=== PATIENT | female | born 1990 | race Caucasian/White ===

== ENCOUNTER 2016-03-19 18:06 | Emergency (ER) | payer OTHER ==
[~2016-03-19 18:06] MED LIST: ACET50TA PO; COLA100C PO; IBUP80TA PO; IRON65TA PO; NUPE1OIN2 TOP; VITAPRTA PO
[2016-03-19] MEDS ORDERED: ONDANSETRON 4 MG ORAL DISINTEGRATING TAB (S0181) As Ordered ONE (19:56)
--- NOTE | 2016-03-19 20:03 | EDDOCDS ---
Physician Documentation [facility] Name: Pauline Mccormack Age: 25 yrs Sex: Female : 1990 Arrival Date: 03/19/2016 Time: 18:06 Bed Triage 2 Private MD: LISA aWrd Disposition: 03/19/16 19:51 Discharged to Home/Self Care. Impression: Nausea and vomiting, Diarrhea, unspecified. - Condition is Stable. - Discharge Instructions: Viral Gastroenteritis. - Prescriptions for ZOFRAN ODT 4 mg - dissolve 1 tablet by ORAL route 4 times per day As needed do not chew, do not swallow whole; 10 tablet. - Medication Reconciliation form. - Follow up: LISA Ward; When: Call to arrange an appointment; Reason: Wound/Symptom Recheck, Recheck today's complaints, Continuance of care. - Problem is new. - Symptoms are unchanged. Historical: - Allergies: Dilaudid (Rash); Morphine (Rash); - Home Meds: 1. Mirena 20 mcg/24 hr (5 years) intrauterine IUD 2. Mobic 15 mg oral tab 1 tab once daily 3. Tylenol Oral as needed 4. Align oral oral daily - PMHx: Osteitis Pubis; - PSHx: Cholecystectomy; Appendectomy; - Social history: Smoking status: Patient uses tobacco products, light tobacco smoker. No barriers to communication noted, The patient speaks fluent Dominican. - Family history: Not pertinent. - : The pt / caregiver states he / she is not on anticoagulants. Home medication list is obtained from the patient. - Exposure Risk Screening:: None identified. 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 7 in. (170.18 cm) (R); 20:01 BP 118 / 72; Pulse 99; Resp 16; Temp 99; Pulse Ox 97% ; Pain 5/10; ko2 18:08 Body Mass Index 35.55 (102.97 kg, 170.18 cm) dd6 MDM: 19:50 Ondansetron ODT Oral Disintegrating Tablet 4 mg PO once ordered. cc10 Administered Medications: 20:02 Drug: Ondansetron ODT 4 mg [ondansetron 4 mg disintegrating tablet (1 tabs)] Route: PO; ko2 Signatures: Candice Mandel, RN RN mcp Cherelle Jamison RN RN lf1 José Miguel Carvajal, PA-C PA-C cc10 Zora Pond RN RN ko2 MTDD
--- NOTE | 2016-03-19 20:03 | EDDOCDS ---
Nurse's Notes [facility] Name: Pauline Mccormack Age: 25 yrs Sex: Female : 1990 Arrival Date: 03/19/2016 Time: 18:06 Bed Triage 2 Private MD: LISA Ward Diagnosis: Nausea and vomiting;Diarrhea, unspecified Presentation: 03/19 18:34 Presenting complaint: Patient states: Severe stomach pain that comes and goes, diarrhea mcp since yesterday, nauseous. Risk factors: the patient reports no vaginal bleeding. Adult Sepsis Screening: The patient does not have new or worsening altered mentation. Patient's respiratory rate is less than 22. Systolic blood pressure is greater than 100. Patient has a qSOFA score of 0- Negative Sepsis Screen. Suicide/Homicide risk assessment- the patient denies having any suicidal and/or homicidal ideations and does not present with any other emotional, behavioral or mental health complaints. Status: The patient is a dependent. Transition of care: patient was not received from another setting of care. 18:34 Acuity: WALLACE Level 3 [facility] 18:34 Method Of Arrival: Walkin/Carried/Asstd [facility] Triage Assessment: 18:37 General: Appears uncomfortable, Behavior is cooperative. Pain: Location: abdomen Pain mcp currently is 7 out of 10 on a pain scale. HIV screening NA for this visit Offered previously. Neurological: No deficits noted. Respiratory: Airway is patent Respiratory effort is even, unlabored. GI: Reports diarrhea, lower abdominal pain. Derm: Skin is pink, warm & dry. 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 Mirena 20 mcg/24 hr (5 years) intrauterine IUD 2. Mobic 15 mg oral tab 1 tab once daily 3. Tylenol Oral as needed 4. Align oral oral daily - PMHx: Osteitis Pubis; - PSHx: Cholecystectomy; Appendectomy; - Social history: Smoking status: Patient uses tobacco products, light tobacco smoker. No barriers to communication noted, The patient speaks fluent Faroese. - Family history: Not pertinent. - : The pt / caregiver states he / she is not on anticoagulants. Home medication list is obtained from the patient. - Exposure Risk Screening:: None identified. Screenin:35 Screening information is obtained from the patient. Fall risk: No risks identified. lf1 Assistance ADL's: requires no assistance with activities of daily living. Nutritional screening: Is suppose to be doing a low fat diet after cholecystectomy but states she does not follow it. Advance Directives: Currently, there is no health care proxy. 20:02 Abuse/DV Screen: The patient / caregiver reports he/she is: not in a situation that ko2 causes fear, pain or injury. home support is adequate. Assessment: 19:35 Adult Sepsis Screening: The patient does not have new or worsening altered mentation. lf1 Patient's respiratory rate is less than 22. Systolic blood pressure is greater than 100. Patient has a qSOFA score of 0- Negative Sepsis Screen. General: Appears in no apparent distress, Behavior is cooperative. Pain: Location: epigastric area, umbilical area and suprapubic area Pain currently is 5 out of 10 on a pain scale. At worst was 8 out of 10 on a pain scale. Pain radiates to abdomen Quality of pain is described as sharp. Neurological: Level of Consciousness is awake, alert, Oriented to person, place, time. EENT: No deficits noted. Cardiovascular: Chest pain is denied. Respiratory: Respiratory effort is even, unlabored, Breath sounds are clear bilaterally. GI: Abdomen is obese, Bowel sounds present X 4 quads. Abd is soft and non tender. GI: Reports cramping, diarrhea. : Denies burning with urination. Derm: Skin is normal. Injury Description: No known injury. Vital Signs: 18:08 BP 122 / 65; Pulse 105; Resp 18 S; Temp 99.0(O); Pulse Ox 97% on R/A; Weight 102.97 kg dd6 (R); Height 5 ft. 7 in. (170.18 cm) (R); 20:01 BP 118 / 72; Pulse 99; Resp 16; Temp 99; Pulse Ox 97% ; Pain 5/10; ko2 18:08 Body Mass Index 35.55 (102.97 kg, 170.18 cm) dd6 Vitals: 18:08 Log In Time: March 19, 2016 at 18:06. dd6 ED Course: 18:07 Patient visited by Eduin Sigala, FALLON. dd6 18:07 Patient moved to Waiting dd6 18:08 Sylvia [facility] is Private Physician. dd6 18:09 Patient moved to Pre RCE dd6 18:35 Triage Initiated [facility] 18:38 Patient visited by Candice Mandel RN. [facility] 19:32 Patient moved to Triage 2 mdr 19:39 Patient visited by Cherelle Jamison,NIELS. lf1 19:44 José Miguel Carvajal PA-C [facility]. cc10 19:44 Hola Johnson MD is Attending Physician. cc10 19:44 Patient visited by José Miguel Carvajal PA-C. cc10 19:44 Patient visited by José Miguel Carvajal PA-C. cc10 19:51 [place] [facility] is Referral Physician. cc10 20:02 The patient / caregiver is instructed regarding the plan of care and ED course. ko2 20:02 No IV's were initiated during this patient's visit. No procedures done that require ko2 assistance. Administered Medications: 20:02 Drug: Ondansetron ODT 4 mg [ondansetron 4 mg disintegrating tablet (1 tabs)] Route: PO; ko2 Order Results: There are currently no results for this order. Outcome: 19:51 Discharge ordered by Provider. cc10 20:02 Discharge Assessment: Patient awake, alert and oriented x 3. No cognitive and/or ko2 functional deficits noted. Patient verbalized understanding of disposition instructions. patient administered narcotics - no. The following High Risk Discharge criteria are identified: None. Discharged to home ambulatory, with significant other. Condition: stable. Discharge instructions given to patient, Instructed on discharge instructions, follow up and referral plans. medication usage, Demonstrated understanding of instructions, medications, Pt was receptive of discharge instructions/ teaching. Prescriptions given X 1. No special radiology studies were completed. Property sent home with patient. 20:03 Patient left the ED. ko2 Signatures: Candice Mandel RN RN [facility] Cherelle Jamison,RN RN lf1 Eduin Sigala, COLLECTIONS TECHNICIAN COLLECTIONS TECHNICIAN dd6 José Miguel Carvajal PA-C PA-C cc10 Zora Pond RN RN ko2 Jose Antonio Asif, COLLECTIONS TECHNICIAN COLLECTIONS TECHNICIAN mdr MTDD
--- NOTE | 2016-03-21 21:03 | EDDOCDS ---
Physician Documentation [facility] Name: Pauline Mccormack Age: 25 yrs Sex: Female : 1990 Arrival Date: 03/19/2016 Time: 18:06 Bed Triage 2 Private MD: LISA Ward Disposition: 03/19/16 19:51 Discharged to Home/Self Care. Impression: Nausea and vomiting, Diarrhea, unspecified. - Condition is Stable. - Discharge Instructions: Viral Gastroenteritis. - Prescriptions for ZOFRAN ODT 4 mg - dissolve 1 tablet by ORAL route 4 times per day As needed do not chew, do not swallow whole; 10 tablet. - Medication Reconciliation form. - Follow up: LISA Ward; When: Call to arrange an appointment; Reason: Wound/Symptom Recheck, Recheck today's complaints, Continuance of care. - Problem is new. - Symptoms are unchanged. Historical: - Allergies: Dilaudid (Rash); Morphine (Rash); - Home Meds: 1. Mirena 20 mcg/24 hr (5 years) intrauterine IUD 2. Mobic 15 mg oral tab 1 tab once daily 3. Tylenol Oral as needed 4. Align oral oral daily - PMHx: Osteitis Pubis; - PSHx: Cholecystectomy; Appendectomy; - Social history: Smoking status: Patient uses tobacco products, light tobacco smoker. No barriers to communication noted, The patient speaks fluent Haitian. - Family history: Not pertinent. - : The pt / caregiver states he / she is not on anticoagulants. Home medication list is obtained from the patient. - Exposure Risk Screening:: None identified. 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 7 in. (170.18 cm) (R); 20:01 BP 118 / 72; Pulse 99; Resp 16; Temp 99; Pulse Ox 97% ; Pain 5/10; ko2 18:08 Body Mass Index 35.55 (102.97 kg, 170.18 cm) dd6 MDM: 19:50 Ondansetron ODT Oral Disintegrating Tablet 4 mg PO once ordered. cc10 03/20 02:57 T-Sheet-- Draft Copy was scanned into [employer] and attached to record. hs2 Administered Medications: 03/19 20:02 Drug: Ondansetron ODT 4 mg [ondansetron 4 mg disintegrating tablet (1 tabs)] Route: PO; ko2 Signatures: Candice Mandel RN RN mcp Cherelle Jamison RN RN lf1 José Miguel Carvajal PA-C PAeFrn cc10 Zora Pond RN RN ko2 Gina Knapp, Reg Reg hs2 The chart was reviewed and I authenticate all verbal orders and agree with the evaluation and treatment provided.Attachments: 03/20 02:57 T-Sheet-- Draft Copy hs2 Chart Complete MTDD
--- NOTE | 2016-03-21 21:03 | EDDOCDS ---
Physician Documentation [facility] Name: Pauline Mccormack Age: 25 yrs Sex: Female : 1990 Arrival Date: 03/19/2016 Time: 18:06 Bed Triage 2 Private MD: LISA Ward Disposition: 03/19/16 19:51 Discharged to Home/Self Care. Impression: Nausea and vomiting, Diarrhea, unspecified. - Condition is Stable. - Discharge Instructions: Viral Gastroenteritis. - Prescriptions for ZOFRAN ODT 4 mg - dissolve 1 tablet by ORAL route 4 times per day As needed do not chew, do not swallow whole; 10 tablet. - Medication Reconciliation form. - Follow up: LISA Ward; When: Call to arrange an appointment; Reason: Wound/Symptom Recheck, Recheck today's complaints, Continuance of care. - Problem is new. - Symptoms are unchanged. Historical: - Allergies: Dilaudid (Rash); Morphine (Rash); - Home Meds: 1. Mirena 20 mcg/24 hr (5 years) intrauterine IUD 2. Mobic 15 mg oral tab 1 tab once daily 3. Tylenol Oral as needed 4. Align oral oral daily - PMHx: Osteitis Pubis; - PSHx: Cholecystectomy; Appendectomy; - Social history: Smoking status: Patient uses tobacco products, light tobacco smoker. No barriers to communication noted, The patient speaks fluent Puerto Rican. - Family history: Not pertinent. - : The pt / caregiver states he / she is not on anticoagulants. Home medication list is obtained from the patient. - Exposure Risk Screening:: None identified. 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 7 in. (170.18 cm) (R); 20:01 BP 118 / 72; Pulse 99; Resp 16; Temp 99; Pulse Ox 97% ; Pain 5/10; ko2 18:08 Body Mass Index 35.55 (102.97 kg, 170.18 cm) dd6 MDM: 19:50 Ondansetron ODT Oral Disintegrating Tablet 4 mg PO once ordered. cc10 03/20 02:57 T-Sheet-- Draft Copy was scanned into [employer] and attached to record. hs2 Administered Medications: 03/19 20:02 Drug: Ondansetron ODT 4 mg [ondansetron 4 mg disintegrating tablet (1 tabs)] Route: PO; ko2 Signatures: Candice Mandel RN RN mcp Cherelle Jamison RN RN lf1 José Miguel Carvajal PA-C PAFern cc10 Zora Pond RN RN ko2 Gina Knapp, Reg Reg hs2 The chart was reviewed and I authenticate all verbal orders and agree with the evaluation and treatment provided.Attachments: 03/20 02:57 T-Sheet-- Draft Copy hs2 Chart Complete MTDD
--- NOTE | 2016-03-21 21:03 | EDDOCDS ---
Nurse's Notes [facility] Name: Pauline Mccormack Age: 25 yrs Sex: Female : 1990 Arrival Date: 03/19/2016 Time: 18:06 Bed Triage 2 Private MD: ILSA Ward Diagnosis: Nausea and vomiting;Diarrhea, unspecified Presentation: 03/19 18:34 Presenting complaint: Patient states: Severe stomach pain that comes and goes, diarrhea mcp since yesterday, nauseous. Risk factors: the patient reports no vaginal bleeding. Adult Sepsis Screening: The patient does not have new or worsening altered mentation. Patient's respiratory rate is less than 22. Systolic blood pressure is greater than 100. Patient has a qSOFA score of 0- Negative Sepsis Screen. Suicide/Homicide risk assessment- the patient denies having any suicidal and/or homicidal ideations and does not present with any other emotional, behavioral or mental health complaints. Status: The patient is a dependent. Transition of care: patient was not received from another setting of care. 18:34 Acuity: WALLACE Level 3 [facility] 18:34 Method Of Arrival: Walkin/Carried/Asstd [facility] Triage Assessment: 18:37 General: Appears uncomfortable, Behavior is cooperative. Pain: Location: abdomen Pain mcp currently is 7 out of 10 on a pain scale. HIV screening NA for this visit Offered previously. Neurological: No deficits noted. Respiratory: Airway is patent Respiratory effort is even, unlabored. GI: Reports diarrhea, lower abdominal pain. Derm: Skin is pink, warm & dry. 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 Mirena 20 mcg/24 hr (5 years) intrauterine IUD 2. Mobic 15 mg oral tab 1 tab once daily 3. Tylenol Oral as needed 4. Align oral oral daily - PMHx: Osteitis Pubis; - PSHx: Cholecystectomy; Appendectomy; - Social history: Smoking status: Patient uses tobacco products, light tobacco smoker. No barriers to communication noted, The patient speaks fluent Senegalese. - Family history: Not pertinent. - : The pt / caregiver states he / she is not on anticoagulants. Home medication list is obtained from the patient. - Exposure Risk Screening:: None identified. Screenin:35 Screening information is obtained from the patient. Fall risk: No risks identified. lf1 Assistance ADL's: requires no assistance with activities of daily living. Nutritional screening: Is suppose to be doing a low fat diet after cholecystectomy but states she does not follow it. Advance Directives: Currently, there is no health care proxy. 20:02 Abuse/DV Screen: The patient / caregiver reports he/she is: not in a situation that ko2 causes fear, pain or injury. home support is adequate. Assessment: 19:35 Adult Sepsis Screening: The patient does not have new or worsening altered mentation. lf1 Patient's respiratory rate is less than 22. Systolic blood pressure is greater than 100. Patient has a qSOFA score of 0- Negative Sepsis Screen. General: Appears in no apparent distress, Behavior is cooperative. Pain: Location: epigastric area, umbilical area and suprapubic area Pain currently is 5 out of 10 on a pain scale. At worst was 8 out of 10 on a pain scale. Pain radiates to abdomen Quality of pain is described as sharp. Neurological: Level of Consciousness is awake, alert, Oriented to person, place, time. EENT: No deficits noted. Cardiovascular: Chest pain is denied. Respiratory: Respiratory effort is even, unlabored, Breath sounds are clear bilaterally. GI: Abdomen is obese, Bowel sounds present X 4 quads. Abd is soft and non tender. GI: Reports cramping, diarrhea. : Denies burning with urination. Derm: Skin is normal. Injury Description: No known injury. Vital Signs: 18:08 BP 122 / 65; Pulse 105; Resp 18 S; Temp 99.0(O); Pulse Ox 97% on R/A; Weight 102.97 kg dd6 (R); Height 5 ft. 7 in. (170.18 cm) (R); 20:01 BP 118 / 72; Pulse 99; Resp 16; Temp 99; Pulse Ox 97% ; Pain 5/10; ko2 18:08 Body Mass Index 35.55 (102.97 kg, 170.18 cm) dd6 Vitals: 18:08 Log In Time: March 19, 2016 at 18:06. dd6 ED Course: 18:07 Patient visited by Eduin Sigala, FALLON. dd6 18:07 Patient moved to Waiting dd6 18:08 [place] [facility] [place]. dd6 18:09 Patient moved to Pre RCE dd6 18:35 Triage Initiated [facility] 18:38 Patient visited by Candice Mandel RN. [facility] 19:32 Patient moved to Triage 2 mdr 19:39 Patient visited by Cherelle Jamison RN. lf1 19:44 José Miguel Carvajal PA-C [facility]. cc10 19:44 Hola Johnson MD is Attending Physician. cc10 19:44 Patient visited by José Miguel Carvajal PA-C. cc10 19:44 Patient visited by José Miguel Carvajal PA-C. cc10 19:51 [place] [facility] [place]erral Physician. cc10 20:02 The patient / caregiver is instructed regarding the plan of care and ED course. ko2 20:02 No IV's were initiated during this patient's visit. No procedures done that require ko2 assistance. 03/20 02:57 T-Sheet-- Draft Copy was scanned into [employer] and attached to record. hs2 Administered Medications: 03/19 20:02 Drug: Ondansetron ODT 4 mg [ondansetron 4 mg disintegrating tablet (1 tabs)] Route: PO; ko2 Order Results: There are currently no results for this order. Outcome: 19:51 Discharge ordered by Provider. cc10 20:02 Discharge Assessment: Patient awake, alert and oriented x 3. No cognitive and/or ko2 functional deficits noted. Patient verbalized understanding of disposition instructions. patient administered narcotics - no. The following High Risk Discharge criteria are identified: None. Discharged to home ambulatory, with significant other. Condition: stable. Discharge instructions given to patient, Instructed on discharge instructions, follow up and referral plans. medication usage, Demonstrated understanding of instructions, medications, Pt was receptive of discharge instructions/ teaching. Prescriptions given X 1. No special radiology studies were completed. Property sent home with patient. 20:03 Patient left the ED. ko2 Signatures: Candice Mandel RN RN [facility] Cherelle JamisonRN RN lf1 Eduin Sigala, CUSTOMER CONTACT REPRESENTATIVE CUSTOMER CONTACT REPRESENTATIVE dd6 José Miguel Carvajal PA-C PA-C cc10 Zora Pond RN RN ko2 Jose Antonio Asif, CUSTOMER CONTACT REPRESENTATIVE CUSTOMER CONTACT REPRESENTATIVE mdr Knapp, Gina, Reg Reg hs2 Chart Complete MTDD
== END 2016-03-19 20:03 | disposition home or self-care (01) ==
LOC: M ED 18:06
DX: A08.4 Viral intestinal infection, unspecified (principal); M85.38 Osteitis condensans, other site; F17.210 Nicotine dependence, cigarettes, uncomplicated; Z97.5 Presence of (intrauterine) contraceptive device; Z79.899 Other long term (current) drug therapy; Z88.8 Allergy status to other drugs, medicaments and biological substances; Z88.5 Allergy status to narcotic agent

== ENCOUNTER 2016-07-02 12:54 | Emergency (ER) | payer OTHER ==
[~2016-07-02] VITALS: Ht 170.2 cm; Wt 97.5 kg
[~2016-07-02 12:54] MED LIST changes: -COLA100C PO; +COLA100C3 PO
[2016-07-02 12:55] VITALS: BP 114/66
[2016-07-02] MEDS ORDERED: MELO15TA4 (13:03)
[2016-07-02] MEDS ORDERED: MIREIUD (13:03)
[2016-07-02] MEDS ORDERED: LIDO5DIS36 (13:03)
== END 2016-07-02 13:38 | disposition home or self-care (01) ==
LOC: M ED 13:29
DX: S06.0X0A Concussion without loss of consciousness, initial encounter (principal); W01.0XXA Fall on same level from slipping, tripping and stumbling without subsequent striking against object, initial encounter; Y92.012 Bathroom of single-family (private) house as the place of occurrence of the external cause; Y93.E1 Activity, personal bathing and showering; Y99.8 Other external cause status; F31.9 Bipolar disorder, unspecified; Z90.49 Acquired absence of other specified parts of digestive tract; Z79.899 Other long term (current) drug therapy; Z88.5 Allergy status to narcotic agent; Z91.040 Latex allergy status